=== PATIENT | male | born 1950 | race Caucasian/White ===

== ENCOUNTER 2023-12-13 12:19 | Inpatient (IN) | payer OTHER, MEDICAID, SELFPAY ==
[2023-12-04 08:09] VITALS: BMI 24.0
[2023-12-13] VITALS (12 sets, daily range): BP systolic 127–160; BP diastolic 73–88; PULSE 64–86; RESP 11–18; TEMP 36.6–37; O2SAT 92–98; BMI 23.7; BMI 24.5
--- NOTE | 2023-12-13 06:00 | DI.RAD.S_ITS ---
PROCEDURE: XR KNEE RT 1TO2V INDICATIONS: TKA TECHNIQUE: 2 view(s) of the knee acquired. COMPARISON: [facility], CR, XR BONE LENGTH SCANOGRAM, 11/14/2023, 11:47. FINDINGS: There has been revision of right knee arthroplasty. Hardware is intact without hardware fracture or periprosthetic lucency to suggest loosening. There is good anatomic alignment. Soft tissue postsurgical changes remain present including effusion. IMPRESSION: Revision of previous knee arthroplasty. Dictated by: Lizzette Calle M.D. on 12/14/2023 at 11:55 Approved by: Lizzette Calle M.D. on 12/14/2023 at 11:56
[2023-12-13] MEDS: MELOXICAM 7.5 MG TABLET PO (12:53)
[2023-12-13] MEDS: ACETAMINOPHEN 325 MG TABLET 975 MG PO (12:53)
[2023-12-13] MEDS: LACTATED RINGERS 1,000 ML 42 ML IV ×2 (12:54→15:35)
--- NOTE | 2023-12-13 13:54 | PM.PREOP ---
Pre-operative Note Interval Note History & Physical reviewed/Exam performed by Physician: Yes Changes to H&P: No
[2023-12-13] MEDS: TRANEXAMIC ACID 1,000 MG VIAL 1000 MG INJ ×2 (14:30→17:41)
[2023-12-13] MEDS: CEFAZOLIN 2 GM/100 ML PREMIX 100 ML IV ×2 (14:35→18:15)
--- NOTE | 2023-12-13 15:23 | SUR.OPER ---
Supine on padded OR bed. Pillow under head, arms secured on padded armboards <90 degree abduction. Safety belt across torso. Non-operative leg secured with tape over blanket over lower leg. Operative leg secured in DeMayo/Gabriel/Nathe positioner. Foam padded brace at thigh of operative leg.
[2023-12-13] MEDS: ROPIVACAINE/EPI/CLONIDINE/KET 50 ML SYRINGE INJ (15:43)
--- NOTE | 2023-12-13 19:43 | P.OP_ITS ---
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 Post-op diagnosis: same Procedure & Clinicians Procedure: Revision of tibial and femoral components of right total knee arthroplasty (17291) Same procedure as scheduled: Yes Surgeon: Dylan [employer] Set Up Operator: Kristen Calle Anesthesia Type: General, Spinal, Peripheral nerve block and Local Operative Notes Findings: Estimated Blood Loss (mL): 350 Tourniquet time (min): 120 Procedure in detail: Revision of femoral and tibial components of right total knee arthroplasty with cemented stems and femoral and tibial cones Implants: [employer] [facility] revision total knee arthroplasty * Size 6 Revision Oxinium Femoral Component with 12 mm x 120 mm stem, 5 mm distal medial augment, 10 mm posterior medial augment, 15 mm distal lateral augment, 10 mm posterior lateral augment * Size 18 Femoral Cone * Size 6 Revision Tibial Baseplate with 12 mm x 120 mm Cemented Stem with 10 mm lateral augment and 5 mm medial augment * Size 20 Long Tibial Cone * 11 mm Posterior Stabilized Polyethylene Insert Procedure Summary: This 72-year-old male patient had a right total knee arthroplasty in 2018. He had ongoing pain and disability related to his knee. I evaluated him in clinic and radiographically diagnosed aseptic loosening of his femoral component with significant subsidence. I aspirated the knee which returned negative on all markers from the Synovasure panel. Intraoperatively 4 cultures were sent. During surgery I noted significant fibrinous tissue on the undersurface of the femoral component. The femoral component was grossly loose and there was no bone loss from extraction of the femoral component as it had failed via complete failure of the cement to implant interface. The tibial component was well fixed. I utilized a TTS saw, osteotomes, and a single sided reciprocating saw to remove it. This did leave some bone loss in the posterior lateral portion of the tibial tray around the keel. Robotic assistance was used throughout the surgery. Prior to component removal I mapped all of the implant surfaces as well as the bony surfaces surrounding them and assessed motion and gaps. A plan was created, which is shown above, based on the robotic evaluation of the knee. This was then executed using a bur. Adjustments were made to evaluate bone loss and prepare for augments accordingly. Primary implants were placed preliminarily to assess overall fit and stability. While unable to completely assess the quality of the knee that point in time I did feel it was appropriate I therefore moved onto prepping for revision components. This involved hand reaming up to 18 mm on both sides and then prepping for femoral and tibial cones. Again trialed with revision components and again found the overall construct to be satisfactory. I therefore placed the tibial and femoral cones and cemented the tibia and femur in separate batches. I found that an 11 mm polyethylene allowed full extension as well as good anterior-posterior stability in flexion and therefore implanted an 11 mm insert. Procedure in Detail: This patient was seen preoperatively and evaluated for knee pain which was refractory to numerous nonoperative treatment modalities. Their pain correlated with radiographic changes demonstrating femoral aseptic loosening. The risks and benefits of continued nonoperative management versus operative management were discussed at length and all of the patient?s questions were answered. Additional educational materials providing further details beyond our discussion in clinic were provided via a publicly available patient education video which can be accessed at [email or web address] . With this understanding of the risks inherent to the procedure, the patient elected to move forward with operative management. Following preoperative optimization, the patient was scheduled for surgery. The patient was met in the preoperative holding area the day of the procedure and all questions were answered. The patient?s nares were swabbed with betadine in order to decolonize them from MRSA. Informed consent was signed and the operative limb was marked with indelible ink.? The patient was brought back to the operating room where anesthesia was induced. The patient was transferred to the operating table and all bony prominences were padded. The operative site was prepped and draped in the usual sterile fashion. A second prep stick was utilized following drape placement. The incision was marked corresponding to the medial aspect of the tibial tubercle and the patella. Ioban was wrapped circumferentially around the knee. Prior to incision, tranexamic acid and cefazolin were administered. Templating images were displayed. A timeout procedure was performed verifying the patient?s identity, medical comorbidities, allergies, relevant medications, anesthesia type and the surgical plan. All present were in agreement. The assistance of a physician first assistant was required for positioning, room setup, soft tissue retraction and wound closure. Without this assistance, the procedure would have been significantly more challenging and time consuming.?? The tourniquet was inflated prior to incision. I made an anterior incision over the knee, dissected through the subcutaneous tissues and identified the lateral border of the VMO. Medial and lateral soft tissue flaps were developed. A medial parapatellar arthrotomy was performed ensuring that adequate capsular tissue would remain for closure at the conclusion of the procedure. I performed a medial peel around to the posterior medial tibia. I excised the medial and lateral gutters, femoral synovium, and additional synovial tissue and sent these for cultures. I utilized a quad snip for exposure. I had prepared for a distal femoral replacement if the bone loss had been severe enough but determined at this time that I likely had sufficient bone to proceed with robotic aided revision. I therefore placed pins in the femur and tibia. Registered these and placed a raise on them for robotic assistance. Mapped out both the femoral and tibial components from the prior total knee. I removed the post from the polyethylene insert to allow mapping of the tibial intramedullary canal at what would have been the site of the ACL footprint. I obtained the hip center and mapped out the medial and lateral malleoli. I took it through a range of motion both stressed and unstressed and used this to construct a plan on the robotic interface. Once satisfied with the robotic plan move forward with component removal. The femur was completely de bonded and therefore did not require any instrumentation for removal. I pulled it off of the bone without leaving any cement attached to the femoral component. Then moved to the tibia. I exposed it with retractors laterally posteriorly and medially. Utilized a combination of a TTS saw, single sided reciprocating saw, and osteotomes to free it from the cement mantle. I then tapped it out using a tamp. I did have bone loss laterally in the area of the keel. I then moved onto execution of the robotic plan. This involved moving the resection line for the distal medial femur, distal lateral femur, posterior medial femur, posterior lateral femur, medial tibia, and lateral tibia respectively until good bony contact was achieved. This was done with the Cori bur. This allowed me to achieve a clean bony surface which corresponded to the implant positioning which had been predetermined with the robotic system. The respective resection depth are listed in the implant sizes above. Once this burring had been performed I placed primary components with the corresponding augments in the tibia and femur. Because they did not have stems or cones they were obviously somewhat lax within the bone however I felt that the overall alignment was appropriate and with gentle range of motion I I was able to assess flexion and extension symmetry and balance and felt that they would be appropriate once further stability was achieved. I assessed the motion with an unstressed range of motion robotically and found it satisfactory. I then removed the robotic pins. I then moved on to preparation of the tibia. I exposed the tibia and hand reamed up to 18 mm. I placed an 18 mm trial stem down the canal and used this for a Reamer. I reamed for the tibial cone and broached and then placed a tibial cone trial. I placed a tibial base plate trial with a 12 mm stem as well as the corresponding augments inside the cone trial and found appropriate fit with the tibia. I then moved onto the femur. I again reamed up to 18 mm. I prepared for a femoral cone off of this. This had a narrow our anterior to posterior dimension than medial to lateral dimension. This trial was gently placed down the canal. I placed a femoral trial with the corresponding 12 mm stem and augments inside the cone as well as a polyethylene trial insert. I more vigorously tested the balance and gap symmetry of the knee at that point in time and found it to be satisfactory. I removed all components and soaked the knee in a dilute mixture of Betadine and peroxide. Components were assembled on the back table. Cement restrictor was placed down the femur but not the tibia. I irrigated and dried the tibia. Cement was placed onto the dry tibia and pressurized into the cancellous bone as well as down the tibial canal. I impacted the tibial component into place. Cement was removed. The cement was allowed to dry. The tibia was reduced underneath the femur and I placed a separate batch of cement onto the dry surface of the resected femur as well as down the femoral canal. I placed the femoral component as well as the intended polyethylene trial. Cement was removed from around the femur. I brought the knee into extension and manually pressurized the construct by pushing on the heel while the cement dried. The knee was bathed in a dilute mixture of betadine and peroxide. A mixture of Ropivacaine, Epinephrine, Clonidine and Toradol was infiltrated throughout the soft tissues into structures including the VMO, patellar tendon, quadriceps tendon, MCL and femoral periosteum. A low adductor canal block was also performed using this mixture unless one had been placed preoperatively by anesthesia. The knee was copiously irrigated with pulse lavage. Once cement had been allowed to dry the knee was again trialed. Range of motion was assessed by ensuring the knee could achieve full extension and assessing maximum passive knee flexion by elevating the femur and allowing the heel to passively fall towards the buttock. Gap symmetry was assessed by stressing the medial and lateral compartments in both extension and flexion. Laxity was assessed in both extension and flexion and the polyethylene trial was adjusted with shims as necessary. Patellar tracking was assessed with knee flexion. The tourniquet was let down and the polyethylene trial was removed. I inspected the knee inspected for excess cement and any residual bleeding. Once hemostasis was achieved I inserted the final polyethylene and ensured appropriate engagement of the locking mechanism.?? The arthrotomy was closed with absorbable interrupted suture ensuring that this extended to the top of the arthrotomy. The quad snip was closed with Ethibond. This was backed up with running barbed suture throughout the arthrotomy. The skin was closed with 2-0 and 3-0 sutures. Surgical glue was applied and a soft dressing was placed.?The sponge, instrument and needle counts were reported as being correct at the end of the case.??No obvious complications occurred. The patient was transferred from the operating table back to a stretcher. The patient emerged from anesthesia without difficulty and was taken to the PACU in a stable condition.? Plan for aftercare: * Weightbearing as tolerated * Mobilization as soon as the patient has recovered from anesthesia. If physical therapists are unavailable at the time the patient is ready to ambulate, then nursing staff should help patient ambulate * Aspirin 81 twice per day for DVT prophylaxis * Multimodal pain regimen with no IV opioids ordered * Anticipate discharge home likely tomorrow * Vidal incisional wound VAC is in place. It should remain in place until his follow up visit. The battery will after a week and at that time the cord can be removed * Follow up at [facility] in 2 weeks * Detailed postoperative instructions available at [email or web address]
[2023-12-13] MEDS: LACTATED RINGERS 1,000 ML 100 ML IV (20:15)
[2023-12-13] MEDS: IBUPROFEN 600 MG TABLET PO (21:03)
[2023-12-13] MEDS: ACETAMINOPHEN 325 MG TABLET 650 MG PO (21:03)
[2023-12-13] MEDS: ASPIRIN EC 81 MG TABLET PO (21:03)
[2023-12-13] MEDS: DOCUSATE 100 MG CAPSULE PO (21:03)
--- NOTE | 2023-12-13 23:31 | P.PN_ITS ---
Subjective Subjective Interval history: Patient seen postoperatively. Resting comfortably. No acute distress. Carlos wrap in place. Has not yet ambulated. Flexing and extending hallux and ankle. Discussed details of surgical procedure with him. We will begin mobilizing him tomorrow morning with anticipation of discharge home Exam Vital Signs (past 8 hours): - 12/13/23 19:21 12/13/23 19:25 12/13/23 19:26 Temperature 98.1 F Pulse Rate 86 81 80 Respiratory Rate 11 L 11 L 11 L Blood Pressure 141/79 H 142/73 H 129/80 Pulse Oximetry 94 94 94 Oxygen Delivery Method Nasal Cannula Nasal Cannula Nasal Cannula Oxygen Flow Rate 2 2 2 12/13/23 19:31 12/13/23 19:41 12/13/23 20:40 Temperature 98.6 F Pulse Rate 78 74 73 Respiratory Rate 11 L 14 18 Blood Pressure 132/81 144/83 H 152/82 H Pulse Oximetry 96 92 96 Oxygen Delivery Method Nasal Cannula Nasal Cannula Oxygen Flow Rate 2 3 12/13/23 21:10 12/13/23 22:10 Temperature 97.8 F 97.8 F Pulse Rate 73 75 Respiratory Rate 17 16 Blood Pressure 160/82 H 155/85 H Pulse Oximetry 97 96 Oxygen Delivery Method Oxygen Flow Rate Oxygen Delivery Method Nasal Cannula Oxygen Flow Rate 3 COUNT INCLUDES THE [facility] Medical History (Updated 12/04/23 @ 09:15 by Yissel Hidalgo RN) ADD (attention deficit disorder) Skin cancer Ankle fracture Surgical History (Updated 12/04/23 @ 09:15 by Yissel Hidalgo RN) History of total left knee replacement History of carpal tunnel surgery of left wrist History of carpal tunnel surgery of right wrist Hx of hernia repair Social History household members: none Smoking Status: Former smoker alcohol intake: former Quality VTE Deep Vein Thrombosis/Pulmonary Embolism Present on Admission: No
[2023-12-14] MEDS: HYDROCODONE/ACET 10/325 TABLET 1 TAB PO ×3 (01:05→13:15)
[2023-12-14] MEDS: CEFAZOLIN 2 GM/100 ML PREMIX 100 ML IV ×2 (02:03→09:23)
[2023-12-14] MEDS: IBUPROFEN 600 MG TABLET PO ×2 (02:03→08:15)
[2023-12-14] MEDS: ACETAMINOPHEN 325 MG TABLET 650 MG PO ×2 (02:03→08:14)
--- NOTE | 2023-12-14 02:54 | PC.NURSE ---
Pt ambulated from room 221 down the travis to room 207 w/ 1 person assist w/ front wheel walker. Pt tolerated well but reported an increase in pain at a pain score of 7/10. Denies dizziness.
[2023-12-14 03:18] VITALS: BP 145/81; PULSE 70; RESP 17; TEMP 36.8; O2SAT 96
[2023-12-14 05:28] LABS: Hematocrit 34.7 % (41-53); Hemoglobin 11.9 g/dL (13.5-17.5)
[2023-12-14] MEDS: LACTATED RINGERS 1,000 ML 100 ML IV (06:41)
[2023-12-14 08:00] VITALS: BP 134/80; PULSE 68; RESP 18; TEMP 36.5; O2SAT 95
[2023-12-14] MEDS: polyethylene glycoL 3350 17 GM POWD.PACK PO (08:14)
[2023-12-14] MEDS: TRAMADOL 50 MG TABLET PO ×2 (08:15→11:23)
[2023-12-14] MEDS: ASPIRIN EC 81 MG TABLET PO (08:15)
[2023-12-14] MEDS: DOCUSATE 100 MG CAPSULE PO (08:15)
--- NOTE | 2023-12-14 09:57 | PT.IIE ---
Current Diagnoses Broken internal right knee prosthesis, initial encounter (12/13/23) Surgery Performed Operation Date: 12/13/23 13:45 Actual Procedures p Total Knee Arthroplasty Revision - Robot, femoral and tibial components(Right) - Dylan Carolina MD Surgical History (Last Updated 12/04/23 @ 09:15 by Yissel Hidalgo, RN) History of carpal tunnel surgery of left wrist History of carpal tunnel surgery of right wrist History of total left knee replacement Hx of hernia repair Medical History (Last Updated 12/04/23 @ 09:15 by Yissel Hidalgo RN) ADD (attention deficit disorder) Ankle fracture Skin cancer Physical Therapy Inpatient Evaluation/Re-Eval M1 PT/OT-IP Prior Functional Status Start: 12/14/23 13:06 Freq: NEEDED Status: Active Protocol: Document 12/14/23 09:57 AB (Rec: 12/14/23 13:21 [id number]) Medical Review Prior Functional Status Medical History Reviewed Yes Communication able to make needs known Mobility and Gait pt stated that he was modified independent with all mobilities and ambulation using a SPC Social History Household Members none Living Arrangements House Number of Floors (Floors) Two Floors Number of Stairs To Enter/Railing? pt will stay on main level of the house has 5 steps L rail ascending Home Environment Standard Height Toilet,Walk in Shower Home Equipment Straight Cane Additional Social History Comment stated that he has friends that can assist him but not stay with him pt has a 3WW M2 PT-IP Current Condition Start: 12/14/23 13:06 Freq: NEEDED Status: Active Protocol: Document 12/14/23 09:57 AB (Rec: 12/14/23 13:21 AB [id number]) Physical Therapy Current Condition Current Condition Evaluation Date 12/14/23 Treatment Diagnosis s/p R TKA revision; difficulty in walking Onset Date 12/13/23 M3 PT-IP Subjective Start: 12/14/23 13:06 Freq: NEEDED Status: Active Protocol: Document 12/14/23 09:57 AB (Rec: 12/14/23 13:21 [id number]) Subjective Physical Therapy Visit Type Type Initial Evaluation Visit Start Time 09:57 Visit Stop Time 11:05 Number of [employer] Visits 0 Physical Therapy Visit Comments Patient Comments agreeable to do PT Therapy Pain Assessment Pain When Pain Assessed At Rest Pain Present Pain Present Pain Reported Location Right Knee Intensity 6 Scale Used Numeric (0 - 10) Pain Behaviors Guarding,Holding Area Pain Management Techniques Apply Cold,Distraction, Elevation,Modification of Treatment,Re-positioning, Timing of Activity with Medications M4 PT-IP Mobility and Gait Start: 12/14/23 13:06 Freq: NEEDED Status: Active Protocol: Document 12/14/23 09:57 AB (Rec: 12/14/23 13:21 AB [id number]) PT-Bed Mobility Assessment Supine to Sit Supine to Sit Standby Assistance PT-Transfer Assessment Sit to and From Stand Sit to and from Stand Contact Guard Assistance,1 Person Assistance,Use of Upper Extremities Equipment Transfer Assistive Device Gait Belt,Front Wheeled Walker Orthotic/Prosthetic Devices or Brace: No Transfers Transfer Destination Chair Transfer Technique ambulated Transfer Ability Level of Assist Contact Guard Assistance, Minimal Assistance,1 Person Assistance,Use of Upper Extremities Comments Mobility Comments pt supine in bed and agreeable to do PT. obtained PLOF and home set up from pt. pt stated that he did not have any pre-op PT and is not set up for outpt PT. pt also does not have DMEs and lives alone . pt also stated that he will go home by [email or web address]. educated pt on safety, equipement needs and need for PT post-op. pt opted to get a FWW from [facility] through the hospital. asked PA for orders . will dispense one to pt prior to d/c. pt completed supine to sit SBA and cues. able to sit on EOB SBA. completed sit to stand min A and ambulated in room using FWW min A ~ 30 ft. presents with unsteadiness and cued for R quads activation. pt also presents with heavy UE use on FWW. pt is impulsive and cued to slow down. pt sat back on the chair and rested. agreed to do stairs. pt completed sit to stand from the chair CGA and ambulated in the hallway using FWW CGA ~ 75 ft. educated pt on car transfers. stair training: pt completed up/down steps holding on to L rail with B hands: mod A for ascending the steps but required max A for descending steps. assisted pt back to his room . ambulated from w/c to chair using fWW CGA. positioned pt on the chair. call light and table placed within reach. informed pt regarding current assistance level and assistance need and for caregiver training completed prior to d/c. pt understood and agreed. pt called his friend and caregiver training set up for this afternoon at 130 pm. Gait Assessment Gait Gait Assistance Required: Contact Guard Assist,Minimum Assistance Distance (Feet) 75 Able to Maintain Weight Bearing Status Yes During Gait Assistive Devices Assistive Device Gait Belt,Front Wheeled Walker Orthotic/Prosthetic Devices or Brace: No Gait Deviations General Gait Pattern Antalgic,Decreased Stride Length,Decreased Feet Clearance Factors Limiting Gait Function Factors Limiting Gait Function Decreased Activity Tolerance, Decreased Strength,Difficulty Following Directions,Limited Range of Motion,Pain,Poor Balance,Poor Safety Awareness Stair Climbing Assessment Evaluation Level of Assist On Stairs Moderate Assistance,Maximal Assistance Devices Stair Climbing Assistive Devices Left Railing Technique/Endurance Stair Climbing Direction Ascend and Descend Stair Climbing Technique Step to Step Number of Steps Climbed 3 Query Text: Stair Climbing Set # Repetitions (reps) 1 PT-Balance Assessment Sitting Balance and Reactions Static Sitting Balance Ability Good Dynamic Sitting Balance Ability Good Standing Balance and Reactions Static Standing Balance Ability Fair Dynamic Standing Balance Ability Fair Device Used FWW M5 PT-IP Objective Assessments Start: 12/14/23 13:06 Freq: NEEDED Status: Active Protocol: Document 12/14/23 09:57 AB (Rec: 12/14/23 13:21 AB [id number]) Orientation Orientation/Cognition Level of Alertness Alert Orientation Name,Place,Situation Language Function Ability No Deficits Noted Safety Awareness Decreased Safety Awareness Memory Description Short Term Impaired Gross Range of Motion Lower Extremity ROM Assessment Right Impaired Impairments R knee flexion: ~ 50 dec R knee extension: ~ 10 deg less to 0 Strength Lower Extremity Strength Assessment Right Impaired Hip 3-/5 Knee 3+/5 Sensation Assessment Sensation Gross Sensation WNL Muscle Tone Muscle Tone WNL Yes M6 PT-IP Treatment Start: 12/14/23 13:06 Freq: NEEDED Status: Active Protocol: Document 12/14/23 09:57 AB (Rec: 12/14/23 13:21 AB [id number]) Physical Therapy Treatment Exercises Exercises Heel Slides Education Education Provided Precautions,Weight Bearing Status,Post-Op Packet,Safety M7 PT-IP Assessment and Plan Start: 12/14/23 13:06 Freq: NEEDED Status: Active Protocol: Document 12/14/23 09:57 AB (Rec: 12/14/23 13:21 AB [id number]) PT Summary Assessment and Plan Potential Rehabilitation Potential Fair Status of Condition at Evaluation Evolving Summary Impairments Pain,ROM,Strength,Balance, Coordination,Sensation,Tone, Cognition,Bed Mobility, Transfers,Gait,Activity Tolerance Assessment Summary pt is a 72 y/o M s/p R TKA revision. pt is WBAT on RLE. pt requiring CGA with transfers and ambulation using FWW but required mod to max A for stair climbing. caregiver training set up for this afternoon at 130 pm. pt lives alone and will have friends to come in to assist when needed. pt will benefit from HHPT. will continue to assess progress. Goals Bed Mobility Goal Independent Transfer Goal Independent,Front Wheeled Walker Gait Goal Independent,Front Wheel Walker Gait Distance 150 Other Goals up/down 5 steps L rail SBA Days to Meet Goals 5 Frequency of Treatment Frequency Of Treatment Twice a Day Treatment Plan Physical Therapy Treatment Plan Bed Mobility Training,Transfer Training,Gait Training, Therapeutic Exercise,Balance Retraining,Post Op Education, Discharge Planning,Hot or Cold Pack,Neuromuscular Re-ed, Coordination Retraining,Manual Therapy Weight Bearing Status Weight Bearing Status Weight Bear as Tolerated Allowed Weight Bearing Amount (enter % RLE WBAT or #) (%) Recommendations To Nursing Amount of Assist Needed 1 Person Assist Discharge Recommendations PT Discharge Recommendations Home with Assistance,Home Health Equipment Needed for Home Before FWW Discharge Transportation Needs at Discharge Private Vehicle
--- NOTE | 2023-12-14 10:41 | P.DS_ITS ---
History of Present Illness History of Present Illness Date Patient Seen: 12/14/23 Time Patient Seen: 10:42 Chief complaint: Knee pain Narrative: Pain is [id number]. Did not get a walker and will have 1 dispensed today. Patient states he has a friend now be checking on him but has 5 steps into his house. Patient plans on getting it over for transfer home. Discharge Providers Provider Date of admission: 12/13/23 12:19 Discharge Date: 12/14/23 Primary care physician: Ciera Deleon MD Consults: 12/13/23 06:00 Consult to Anesthesiology Routine Comment: Consulting Provider: Anesthesiologist Reason for consultation: Regional block for post operative pain control 12/13/23 20:05 Consult to Discharge Planning Routine Comment: Consult to Occupational Therapy Evaluate & Treat Comment: Physician Instructions: Evaluate and treat Consult to Physical Therapy Evaluate & Treat Comment: Physician Instructions: postop TKA protocol 12/14/23 10:40 Consult to Physical Therapy Evaluate & Treat Comment: Dispense walker Physician Instructions: Evaluate and Treat Discharge provider: Rikki Hale PA-C Summary Hospital Course Discharge Diagnosis: Aseptic loosening right total knee arthroplasty Hospital Course: Procedure & Clinicians Procedure: Revision of tibial and femoral components of right total knee arthroplasty ([id number]) Same procedure as scheduled: Yes Surgeon: Dylan Carolina Process Safety Management Engineer: Kristen Calle Anesthesia Type: General, Spinal, Peripheral nerve block and Local Operative Notes Findings: Estimated Blood Loss (mL): 350 Tourniquet time (min): 120 Procedure in detail: Revision of femoral and tibial components of right total knee arthroplasty with cemented stems and femoral and tibial cones Implants: [facility] revision total knee arthroplasty * Size 6 Revision Oxinium Femoral Component with 12 mm x 120 mm stem, 5 mm distal medial augment, 10 mm posterior medial augment, 15 mm distal lateral augment, 10 mm posterior lateral augment * Size 18 Femoral Cone * Size 6 Revision Tibial Baseplate with 12 mm x 120 mm Cemented Stem with 10 mm lateral augment and 5 mm medial augment * Size 20 Long Tibial Cone * 11 mm Posterior Stabilized Polyethylene Insert Patient admitted to the hospital for the above-mentioned procedure. Patient underwent revision of tibial and femoral components right total knee arthroplasty December 13, 2023. Patient back in his room recovering well as in stable condition. Weightbearing as tolerated, mobilize with physical therapy. Aspirin 81 mg b.i.d. for DVT prophylaxis x6 weeks. Multimodal pain management. Vidal dressing to remain in place until his follow up appointment. Follow up in 2 weeks. Patient has 5 steps into his house and will have to perform steps prior to leaving the hospital. Patient will be discharged home today if safe for home environment. Exam Vital Signs (past 8 hours): - 12/14/23 03:18 12/14/23 03:18 12/14/23 08:00 Temperature 98.3 F 97.7 F Pulse Rate 70 68 Respiratory Rate 17 18 Blood Pressure 145/81 H 134/80 Pulse Oximetry 96 95 Oxygen Flow Rate 0 0 Oxygen Delivery Method Nasal Cannula Oxygen Flow Rate 0 Objective Labs 12/14/23 04:55 Labs: Laboratory Results - last 24 hr 12/14/23 04:55 Hgb 11.9 L Hct 34.7 L PFSH Medical History (Updated 12/04/23 @ 09:15 by Yissel Hidalgo RN) ADD (attention deficit disorder) Skin cancer Ankle fracture Surgical History (Updated 12/04/23 @ 09:15 by Yissel Hidalgo RN) History of total left knee replacement History of carpal tunnel surgery of left wrist History of carpal tunnel surgery of right wrist Hx of hernia repair Social History household members: none Smoking Status: Former smoker alcohol intake: former Discharge Plan Discharge Plan Patient Disposition: Home Provider Discharge Comment: Discharge home today if able to do stairs Discharge orders & Medications Prescriptions: New acetaminophen 325 mg Tablet 325 mg PO Q6H Qty: 60 0RF Rx Instructions: Monitor dosage, do not exceed 4000 mg of Tylenol per day hydrocodone-acetaminophen 10-325 mg Tablet 1 tab PO Q6HR PRN (Reason: pain) Qty: 60 0RF aspirin 81 mg Tablet,Delayed Release (Dr/Ec) 81 mg PO BID Qty: 60 0RF ibuprofen 600 mg Tablet 600 mg PO Q6H Qty: 60 0RF Continued amlodipine 5 mg tablet 5 mg PO DAILY testosterone cypionate 200 mg/mL oil 200 mg IM Q2W Discontinued naproxen 500 mg Tablet 500 mg PO BID ibuprofen 600 mg tablet 600 mg PO PRN PRN (Reason: Pain (Scale Score 4-6)) Follow up/Referrals: Ciera Deleon MD [Primary Care Provider] - Dylan Carolina MD [Physician] - (Follow up at [facility] as scheduled in 2 weeks. ) Diet/Activity/Treatments Diet: Diet as Tolerated Cold/Heat Therapy: Ice to the knee for additional pain control Skin/Wound/Dressing Care Report to your healthcare provider any signs of infection, such as:: chills, fever, night sweats, unusual drainage and unusual redness Dressing: Keep dressing intact, clean and dry until 2 week post-op appointment. No soaking the incision site in pools or tubs. No topical ointments or creams to the incision site. Visit Report/Discharge Packet Instructions: DI for Knee Replacement, DI for Prescription Opioid Use Stand Alone Forms: Patient Portal/API, Stroke Signs & Symptoms, Surgery Discharge Discharge Data Primary Care Provider: Ciera Deleon VTE Deep Vein Thrombosis/Pulmonary Embolism Present on Admission: No
--- NOTE | 2023-12-14 11:20 | CM.DANOTE ---
DCP: Case received, EMR reviewed and met with patient. Introduced self and role. Was able to obtain information regarding patient's baseline activity level prior to his surgery. DCP assessment completed with information currently available. Patient is a 72 year old male who admitted yesterday to the care of the orthopedic team. PCP: Dr. Deleon. Payer: confirmed: [employer] Medicare Advantage. Patient came to the hospital via private vehicle for a surgical procedure. Patient had revision of tibial and femoral components of right total knee arthroplasty. Patient had aseptic loosening of right knee. Met with patient in his room. He is alert, was sitting up in his bed. Confirmed that he resides alone in [place], but has a friend staying with him. At his baseline, he has been independent. He will be working with P.T. He does have 5 stairs at home that he will need to navigate. He indicated that he has set up an uber for transportation, but will need to follow up with this. P: DCP to continue to follow. Patient does have discharge orders, dependendent upon how he does with P.T, and transportation. Tania Esparza RN/Hvac Estimator Discharge Planning/Care Management CM Discharge Assessment Start: 12/14/23 11:18 Freq: Status: Active Protocol: Document 12/14/23 11:18 (Rec: 12/14/23 11:20 [id number]) Discharge Planning Assessment Assigned [place] Tania Esparza RN/Hvac Estimator Advance Directives? No History Provided By Patient,Medical Record Prior Living Arrangements House Household Members none Type of transporation used prior to Drives own vehicle admit Independent with ADL's Yes Is patient alert and oriented? Yes Caregiver for Another No Comment Transportation, lives alone Discharge Plan Home Transportation Arrangement Will have to look into this, stated that he was wanting to use uber, but unclear if this is feasible. Referrals Initiated None needed Whiteboard Updated in Patient Room with Yes name and ext. # of [place] Review Status In Process Next Review Type Continued Stay Review Pre-Anesthesia Assessment Start: 12/04/23 08:09 Freq: Status: Complete Protocol: Document 12/04/23 08:09 CAB (Rec: 12/04/23 09:23 CAB [id number]) Pre-Anesthesia Assessment Preferred Name Rubio Patient Information Reviewed Via Phone Assessment Assessment Completed With Patient Diagnostic Results BMP/CMP,CBC,EKG Comment Outside labs/EKG scanned Primary Care Provider Ciera Deleon Comment PCP clearance form 10/28/23 scanned Seen Specialist in Last 12 Months Yes Specialist Seen Orthopedist Primary Language [employer] License[employer] Required No Height 6 ft Weight 177 lb Body Mass Index (BMI) 24.0 Hearing Ability Normal Visual Assist Glasses Dentition Type Teeth, Natural Present,Dental Implants Barriers to Learning Reading skills Hx Anesthesia Reactions No Hx Family Anesthesia Reaction No Hx Malignant Hyperthermia No Hx Blood Transfusions No Anesthesia Review Requested No Hematologist No alcohol intake former Alcohol Intake Frequency Other: Quit 25 years ago Smoking Status Former smoker how long ago did patient quit smoking Quit 25 years ago Substance Use Type marijuana Comment Pt advised not to smoke marijuana 24 hours prior Pain Present Pain Reported Musculoskeletal Symptoms Abnormal Gait,Difficulty Walking,Joint Pain History of Falling (Recent or History of No ) Patient is completely paralyzed or No completely immobile Prosthesis or Orthotic Device Cane Mental Status Oriented to own ability Is patient on oxygen? No Does patient have CLAY/SOB No Hx Sleep Apnea No Currently Taking a Beta David No Hx Chest Pain No Hx SOB No Hx Syncope or Dizziness No Anti-Coagulant Therapy No Has a Herpetologist No Cardiac Testing No Hx Pacemaker/ICD No Pacemaker Rep Required? No Cardiac Clearance Received Not Applicable Diet Type At Home Regular Dysphagia No Gastrointestinal Symptoms None Urinary Catheter Present No Hx Urinary Self Catheterization No Diabetes No HgbA1C 5.5 Date 10/28/23 Hx Drug Resistant Organism No Presence of External or Internal Medical Yes: Left knee prothesis Devices Received a COVID vaccine? Yes Received all doses? Yes Marital Status Single Lives With none Current Living Arrangements House Number of Floors (Floors) Two Floors Support System Friend(s) Does the Patient Have Assistance After Yes: Friend will stay w/pt to Surgery assist with care at [place] Patient Discharge Plan Description Return Home Comment Pt advised 2 day length of stay per surgeon I think Feels Safe in Current Environment Yes Been Physically Hurt or Threatened By a No Person in Current Environment Do you have thoughts of harming yourself None or others? Are you currently considering suicide? No Do you have a plan to hurt yourself or No Plan others? Do You Have Any Spiritual Beliefs That No May Affect Your HC Choices? Do You Have Any Cultural Practices That No May Affect Your HC Choices? Who Can We Speak to About Patient's Care Family, friends Identifying Code for Release of Patient Declines to issue Information Health Care Proxy/Next of Kin Gvai (sister) Health Care Proxy Emergency Contact Name Gavi (sister) Emergency Contact Advance Directives? No Power of Cornice Maker No PAC Instructions Durable medical equipment, Medications to take/avoid, Nasal antibiotic,No ETOH/ petroleum product on skin DOS, NPO,Pre-surgical wash,Sensory aids,Sturdy shoes/comfortable clothes,Do not bring valuables and remove jewelry
[2023-12-14 12:00] VITALS: BP 149/84; PULSE 69; RESP 18; TEMP 36.2; O2SAT 97
--- NOTE | 2023-12-14 13:41 | PT.IPTN ---
Current Diagnoses Broken internal right knee prosthesis, initial encounter (12/13/23) Surgery Performed Operation Date: 12/13/23 13:45 Actual Procedures p Total Knee Arthroplasty Revision - Robot, femoral and tibial components(Right) - Dylan Carolina MD Physical Therapy Treatment Note M2 PT-IP Current Condition Start: 12/14/23 13:06 Freq: NEEDED Status: Discharge Protocol: Document 12/14/23 09:57 AB (Rec: 12/14/23 13:21 AB [id number]) Physical Therapy Current Condition Current Condition Evaluation Date 12/14/23 Treatment Diagnosis s/p R TKA revision; difficulty in walking Onset Date 12/13/23 M3 PT-IP Subjective Start: 12/14/23 13:06 Freq: NEEDED Status: Discharge Protocol: Document 12/14/23 15:07 TS (Rec: 12/14/23 15:20 TS [id number]) Subjective Physical Therapy Visit Type Type Treatment Note Visit Start Time 13:41 Visit Stop Time 14:05 Number of DRIER [employer]OR Visits 1 Physical Therapy Visit Comments Patient Comments Pt found resting in chair, friend in room, pt agreeable to PT. Therapy Pain Assessment Pain When Pain Assessed At Rest Pain Present Pain Present Pain Reported Location Right Knee Intensity 4 Scale Used Numeric (0 - 10) Description Aching Pain Management Techniques Apply Cold,Distraction, Elevation,Modification of Treatment,Re-positioning, Timing of Activity with Medications M4 PT-IP Mobility and Gait Start: 12/14/23 13:06 Freq: NEEDED Status: Discharge Protocol: Document 12/14/23 15:07 TS (Rec: 12/14/23 15:20 TS [id number]) PT-Transfer Assessment Sit to and From Stand Sit to and from Stand Standby Assistance,Use of Upper Extremities Equipment Transfer Assistive Device Gait Belt,Front Wheeled Walker Orthotic/Prosthetic Devices or Brace: No Comments Mobility Comments Caregiver Gabino instructed in and performed donning of gait belt. STS from chair SBA with FWW. He ambulated ~50'SBA with FWW and step to gait, pt requested to sit in w/c. Pt was brought to steps. He performed steps x3 with single handrails and assist from caregiver. Pt was brought back to room in w/c. STS from chair SBA, pt ambulated to chair. Pt was left in chair, all needs met, preparing for d /c. Gait Assessment Gait Gait Assistance Required: Standby Assistance Distance (Feet) 50 Able to Maintain Weight Bearing Status Yes During Gait Assistive Devices Assistive Device Gait Belt,Front Wheeled Walker Orthotic/Prosthetic Devices or Brace: No Gait Deviations General Gait Pattern Antalgic,Decreased Stride Length,Decreased Feet Clearance Factors Limiting Gait Function Factors Limiting Gait Function Decreased Activity Tolerance, Decreased Strength,Difficulty Following Directions,Limited Range of Motion,Pain,Poor Balance,Poor Safety Awareness Stair Climbing Assessment Evaluation Level of Assist On Stairs Contact Guard Assistance,1 Person Assistance Devices Stair Climbing Assistive Devices Left Railing Technique/Endurance Stair Climbing Direction Ascend and Descend Stair Climbing Technique Step to Step Number of Steps Climbed 3 Stair Climbing Set # Repetitions (reps) 1 PT-Balance Assessment Sitting Balance and Reactions Static Sitting Balance Ability Good Dynamic Sitting Balance Ability Good Standing Balance and Reactions Static Standing Balance Ability Fair Dynamic Standing Balance Ability Fair Device Used FWW M5 PT-IP Objective Assessments Start: 12/14/23 13:06 Freq: NEEDED Status: Discharge Protocol: Document 12/14/23 09:57 AB (Rec: 12/14/23 13:21 AB [id number]) Orientation Orientation/Cognition Level of Alertness Alert Orientation Name,Place,Situation Language Function Ability No Deficits Noted Safety Awareness Decreased Safety Awareness Memory Description Short Term Impaired Gross Range of Motion Lower Extremity ROM Assessment Right Impaired Impairments R knee flexion: ~ 50 dec R knee extension: ~ 10 deg less to 0 Strength Lower Extremity Strength Assessment Right Impaired Hip 3-/5 Knee 3+/5 Sensation Assessment Sensation Gross Sensation WNL Muscle Tone Muscle Tone WNL Yes M6 PT-IP Treatment Start: 12/14/23 13:06 Freq: NEEDED Status: Discharge Protocol: Document 12/14/23 15:07 TS (Rec: 12/14/23 15:20 TS [id number]) Physical Therapy Treatment Education Education Provided Precautions,Weight Bearing Status,Post-Op Packet,Safety M7 PT-IP Assessment and Plan Start: 12/14/23 13:06 Freq: NEEDED Status: Discharge Protocol: Document 12/14/23 15:07 TS (Rec: 12/14/23 15:20 TS [id number]) PT Summary Assessment and Plan Potential Rehabilitation Potential Fair Summary Impairments Pain,ROM,Strength,Balance, Coordination,Sensation,Tone, Cognition,Bed Mobility, Transfers,Gait,Activity Tolerance Progress Towards Goals Progressing Toward Goals Assessment Summary Navi is making good progress with his mobility. He is SBA for STS with use of FWW. He ambulated ~50'SBA with FWW with w/c follow. He performed steps x3 with single rail CGA, had no buckling or LOB. Caregiver was instructed in and performed donning of gait belt, STS technique, gait and stair training. PT is recommending home with assist and outpatient PT. Goals Bed Mobility Goal Independent Transfer Goal Independent,Front Wheeled Walker Gait Goal Independent,Front Wheel Walker Gait Distance 150 Other Goals up/down 5 steps L rail SBA Days to Meet Goals 5 Frequency of Treatment Frequency Of Treatment Twice a Day Treatment Plan Physical Therapy Treatment Plan Bed Mobility Training,Transfer Training,Gait Training, Therapeutic Exercise,Balance Retraining,Post Op Education, Discharge Planning,Hot or Cold Pack,Neuromuscular Re-ed, Coordination Retraining,Manual Therapy Weight Bearing Status Weight Bearing Status Weight Bear as Tolerated Allowed Weight Bearing Amount (enter % RLE WBAT or #) (%) Recommendations To Nursing Amount of Assist Needed 1 Person Assist Discharge Recommendations PT Discharge Recommendations Home with Assistance,Home Health Equipment Needed for Home Before FWW was dispensed Discharge Transportation Needs at Discharge Private Vehicle
== END 2023-12-14 14:38 | disposition home or self-care (01) | DRG 468 ==
PROVIDERS: Admitting Provider Orthopaedic Surgery Adult Reconstructive Orthopaedic Surgery; PCP Family Medicine; Referring Provider Orthopaedic Surgery Adult Reconstructive Orthopaedic Surgery; Visit Provider Orthopaedic Surgery Adult Reconstructive Orthopaedic Surgery
PROC: 0SPC0JZ Removal of Synthetic Substitute from Right Knee Joint, Open Approach (ICD-10-PCS; principal; 2023-12-13 13:45)
DX: T84.032A Mechanical loosening of internal right knee prosthetic joint, initial encounter (principal); Z87.891 Personal history of nicotine dependence; Z91.81 History of falling
CPT/HCPCS: 36415; 73560; 85014; 85018; 87070; 87075; 87205; 97116; 97162; 97530; C1776; J0690; J1100; J1170; J2250; J2405; J2704